=== PATIENT | male | born 1970 | race Caucasian/White ===

== ENCOUNTER 2018-10-11 01:00 | Observation (INO) | payer MEDICAID ==
[~2018-10-11] VITALS: Ht 188 cm; Wt 97.7 kg
--- NOTE | ~2018-10-11 | HEMODYNAMI ---
PATIENT:KADIE DELEON MEDICAL RECORD: [id number] : 74 [facility] AD[facility] DATE: 10/11/18 Generatedon:10/11/20189:40 Patient name: KADIE DELEON Patient #: [id number] SSN: : 1970 Date of study: 10/11/2018 Page: Of Hemodynamic Procedure Report Patient Data Patient Demographics Procedure consent was obtained First Name: KADIE Gender: Male Last Name: ADRIENNE : 1970 Patient #: [id number] Age: 48 year(s) Race: Unknown Additional ID: [id number] Contact details [address]: [address] [place] [address] State: [place] City: [place] Zip code: [address] Past Medical History Allergies: No known allergies Admission Admission Data Admission Date: 10/11/2018 Admission Time: 2:36 Room #: E14 Lab Results Lab Result Date: 10/11/2018 Lab Result Time: 0:00 Biochemistry Name Units Result Min Max BUN mg/dl 16 --(---*)-- 7 18 Creatinine mg/dl 0.9 --(-*--)-- 0.6 1.3 CBC Name Units Result Min Max Hematocrit % 45.2 --(-*--)-- 42 54 Hemoglobin g/dl 15.9 --(--*-)-- 13.5 17.5 Procedure Procedure Types Cath Procedure Diagnostic Procedure LHC [facility] w/Coronaries Sedation Charges Moderate Sedation up to 15 minutes PCI Procedure Coronary Stent Coronary Stent Initial Coronary Stent Additional Procedure Description Procedure Date Procedure Date: 10/11/2018 Procedure Start Time: 9:15 Procedure End Time: 9:35 Procedure Staff Name Function Trenton Mojica MD Performing Physician Allan Santiago RN Nurse Tabatha Ruvalcaba RT Scrub Thuy Dee RT Monitor Procedure Data Cath Procedure Fluoroscopy Diagnostic fluoroscopy Total fluoroscopy Time: 6.6 time: 6.6 min min Diagnostic fluoroscopy Total fluoroscopy dose: 688 dose: 688 mGy mGy Contrast Material Contrast Material Type Amount (ml) Isovue 300 128 Entry Location Entry Primary Successful Side Size Upsize Upsize Entry Closure Harp ccessful Closure Location (Fr) 1 (Fr) 2 (Fr) Remarks Device Remarks Radial Right 6 Fr Mechanical artery Short Compression Estimated blood loss: 10 ml Diagnostic catheters Device Type Used For End Catheter Placement DIAGNOSTIC [place] 110cm 5 Procedure Fr catheter (800171) Procedure Complications No complications Procedure Medications Medication Administration Route Dosage Oxygen etCO2 Nasal cannula 2 l/min Lidocaine 2% added to field 20 Heparin Flush Bag added to field 2 bags (1000units/500ml NS) Solumedrol I.V. 125 mg Radial Cocktail I.A. 1 syringe (Verapomil 2mg/Nitro 400mcg/Heparin 1500units) Versed I.V. 2 mg Fentanyl I.V. 100 mcg Versed I.V. 2 mg Fentanyl I.V. 100 mcg Heparin Bolus I.V. 4000 units Versed I.V. 2 mg Fentanyl I.V. 100 mcg Versed I.V. 2 mg Versed I.V. 1 mg Hemodynamics Rest HGB: 15.9 (g/dl) Heart Rate: 84 (bpm) Snapshots Pre Cath Intra NCS Post Cath Vital Signs Time Heart Resp SPO2 etCO2 NIBP (mmHg) Rhythm Pain Sedation Rate (ipm) (%) (mmHg) Status Level (bpm) 9:04:35 88 26 96 27.9 116/86(102) NSR 0 (11) 10(A) , No pain 9:08:31 80 32 95 21.1 126/88(95) NSR 0 (11) 10(A) , No pain 9:12:32 83 28 96 24.2 133/87(98) NSR 0 (11) 10(A) , No pain 9:16:36 76 18 94 16.6 122/88(98) NSR 0 (11) 10(A) , No pain 9:20:40 90 12 93 29.5 117/73(100) NSR 0 (11) 9(A) , No pain 9:24:39 87 12 95 28.7 124/76(100) NSR 0 (11) 9(A) , No pain 9:28:41 88 11 95 36.3 121/78(95) NSR 0 (11) 9(A) , No pain 9:32:41 93 12 94 36.3 121/81(103) NSR 0 (11) 9(A) , No pain 9:38:15 88 11 96 37.8 116/74(93) NSR 0 (11) 10(A) , No pain Medications Time Medication Route Dose Verified Delivered Reason Note s Effectiveness by by 9:05:12 Heparin Flush added 2 bags Trenton Chowdhury used for Bag to Yunior Mojica MD procedure (1000units/500ml field NS) 9:05:39 Oxygen etCO2 2 l/min Trenton Lemus used for Nasal Yunior Santiago RN procedure cannula 9:05:46 Lidocaine 2% added 20ml Trenton Chowdhury for local to vial Yunior Mojica MD anesthetic field 9:07:12 Solumedrol I.V. 125 mg Trenton Lemus Per physician pt Yunior Santiago RN states gets hives with crab meat 9:13:07 Versed I.V. 2 mg Trenton Lemus for sedation Yunior Santiago RN 9:13:14 Fentanyl I.V. 100 mcg Trenton Lemus for sedation Yunior Santiago RN 9:16:37 Versed I.V. 2 mg Trenton Lemus for sedation Yunior Santiago RN 9:16:41 Fentanyl I.V. 100 mcg Trenton Lemus for sedation Yunior Santiago RN 9:16:49 Radial Cocktail I.A. 1 Trenton Chowdhury for (Verapomil syringe Yunior Mojica MD vasodilation 2mg/Nitro 400mcg/Heparin 1500units) 9:20:02 Fentanyl I.V. 100 mcg Trenton Lemus for sedation Yunior Santiago RN 9:20:58 Versed I.V. 2 mg Trentonrich Castanedaie for sedation Yunior Santiago RN 9:22:49 Heparin Bolus I.V. 4000 Trentonrich Lemus for veri fied units Yunior Santiago RN anticoagulation with dr mojica 9:26:49 Versed I.V. 2 mg Trenton Lemus for sedation Yunior Santiago RN 9:31:25 Versed I.V. 1 mg Trenton Lemus for sedation Yunior Santiago RN Procedure Log Time Note 8:42:17 Signed procedure consent form obtained from patient. 8:42:20 Allan Santiago RN sent for patient. Start room use. 8:42:27 Time tracking: Regular hours (M-F 7:00 - 5:00) 8:42:30 Plan of Care:Hemodynamics will remain stable., Cardiac rhythm will remain stable., Comfort level will be maintained., Respiratory function will remain adequate., Patient/ family verbilizes understanding of procedure., Procedure tolerated without complication., Recovers from procedure without complications.. 8:42:37 H&P Date Dictated: 10/11/2018 ER History on chart.. 8:51:01 Patient received from ED to CCL 1 Alert and oriented. Tansferred to table in Supine position. 8:51:02 Warm blankets applied, and nadege hugger turned on for patient comfort. 8:51:02 Correct patient and procedure confirmed by team. 8:51:03 ECG and BP/O2 sat monitors applied to patient. 9:03:32 Vital chart was started 9:03:38 Rhythm: sinus rhythm 9:03:39 Full Disclosure recording started 9:03:40 Pre-procedure instructions explained to patient. 9:03:41 Pre-op teaching completed and patient verbalized understanding. 9:03:43 Family in waiting room. 9:03:51 Patient allergic to No known allergies 9:03:54 Is patient on blood thinner?Yes 9:04:08 PRE LOADED PLAVIX 9:05:08 Patient diabetic? No. 9:05:12 Heparin Flush Bag (1000units/500ml NS) 2 bags added to field was administered by Trenton Mojica MD; used for procedure; 9:05:17 Previous problem with sedation/anesthesia? No ? 9:05:18 Snore? No 9:05:19 Sleep apnea? No 9:05:21 Deviated septum? No 9:05:24 Opens mouth fully? Yes 9:05:25 Sticks out tongue? Yes 9:05:32 Airway obstruction? No ? 9:05:38 Airway obstruction? Yes SEASONAL ALLERGIES 9:05:39 Oxygen 2 l/min etCO2 Nasal cannula was administered by Allan Santiago RN; used for procedure; 9:05:41 Dentures? No ? 9:05:42 Modified Ron's test Ulnar < 7 seconds 9:05:46 Lidocaine 2% 20ml vial added to field was administered by Trenton Mojica MD; for local anesthetic; 9:05:46 Patient pain scale 0/10 ?. 9:05:50 IV patent on arrival in left hand with 0.9% NaCl at KVO. 9:05:54 Lab results completed and on chart. 9:05:59 Right Radial & Right Groin area was prepped with chlora-prep and draped in sterile fashion 9:06:00 Alarms reviewed by R. N. 9:06:00 Sharps counted by scrub and verified by R.N. 9:06:06 Use device set Radial Dx or PCI 9:06:07 ACIST Syringe (13608) opened to sterile field. 9:06:08 Bag Decanter (2002S) opened to sterile field. 9:06:09 ACIST Hand Control (54689) opened to sterile field. 9:06:10 ACIST Manifold (37001) opened to sterile field. 9:06:10 Tegaderm 4 x 4 (1626W) opened to sterile field. 9:06:11 Medline Cath Pack ([id number]) opened to sterile field. 9:06:12 DIAGNOSTIC WIRE .035 260cm J wire (785176) opened to sterile field. 9:06:12 MBrace Wrist Support ([id number]) opened to sterile field. 9:06:13 SHEATH 6FR Slender (81-8372) opened to sterile field. 9:07:12 Solumedrol 125 mg I.V. was administered by Allan Santiago RN; Per physician; pt states gets hives with crab meat 9:07:32 Baseline sample Acquired. 9:08:27 Lab Result : BUN 16 mg/dl 9:08:27 Lab Result : Hemoglobin 15.9 g/dl 9:08:27 Lab Result : Creatinine 0.9 mg/dl 9:08:27 Lab Result : Hematocrit 45.2 % 9:12:38 --------ALL STOP TIME OUT------ 9:12:38 Final Timeout: patient, procedure, and site verified with staff and physician. All members of the team are in agreement. 9:12:40 Right Radial & Right Groin site verified by team. 9:12:46 Maximum allowable Isovue 300 dose 300ml. Physician notified. (300ml for normal creatinines. For patients with creatinine of 1.7 or higher multiply weight(kg) x 5 divided by creatinine.) 9:12:51 Fire Safety Assessment: A--An alcohol-based skin anteseptic being used preoperatively., C--Open oxygen or nitrous oxide is being used., D--An ESU, laser, or fiber-optic light is being used. 9:12:55 Physical assessment completed. ASA score P 2 - A patient with mild systemic disease as per Trenton Mojica MD. 9:12:57 Sedation plan: IV Moderate Sedation Medication:Versed, Fentanyl 9:13:06 Zero performed for pressure channel P1 9:13:07 Versed 2 mg I.V. was administered by Allan Santiago RN; for sedation; 9:13:14 Fentanyl 100 mcg I.V. was administered by Allan Santiago RN; for sedation; 9:14:41 Procedure started. 9:15:11 Local anesthetic to right radial artery with Lidocaine 2% by Trenton Mojica MD.INITIAL ACCESS ONLY 9:15:25 A 6 Fr Short sheath was inserted into the Right Radial artery 9:16:37 Versed 2 mg I.V. was administered by Allan Santiago RN; for sedation; 9:16:41 Fentanyl 100 mcg I.V. was administered by Allan Santiago RN; for sedation; 9:16:49 Radial Cocktail (Verapomil 2mg/Nitro 400mcg/Heparin 1500units) 1 syringe I.A. was administered by Trenton Mojica MD; for vasodilation; 9:17:37 A DIAGNOSTIC [place] 110cm 5 Fr catheter (069137) was advanced over the wire and used for Procedure. 9:18:15 LV gram done using WATSON 9:18:18 Injector settings: Ml/sec: 7, Volume: 15, 9:18:55 EF : 55 % 9:19:33 RCA angiography performed. 9:19:41 Catheter exchanged over wire. 9:20:02 Fentanyl 100 mcg I.V. was administered by Allan Santiago RN; for sedation; 9:20:30 GUIDE 6FR XBLAD 3.5 catheter ([id number]) opened to sterile field. 9:20:49 6 Fr XBLAD 3.5 guide catheter was inserted over the wire 9:20:58 Versed 2 mg I.V. was administered by Allan Santiago RN; for sedation; 9:22:10 CHOICE PT Extra Support 182cm wire ([id number]) opened to sterile field. 9:22:10 INFLATOR Merit BasmernaCompak (YJ8728) opened to sterile field. 9:22:49 Heparin Bolus 4000 units I.V. was administered by Allan Santiago RN; for anticoagulation; verified with dr mojica 9:23:04 CHOICE ES 182 wire advanced. 9:23:21 Wire advanced across lesion. 9:23:41 CHOICE PT Extra Support 182cm wire ([id number]) opened to sterile field. 9:23:53 WIRE #2 ADVANCED ACROSS LAD 9:25:10 Inflate balloon Inflation number: 1 A EUPHORA 2.5 x 20 Balloon ([id number]) was prepped and advanced across the 1st Diag, then inflated to 11 [place] for 0:00 (min:sec). 9:25:48 Balloon removed over the wire. 9::49 Versed 2 mg I.V. was administered by Allan Santiago RN; for sedation; 9:27:10 Place stent Inflation Number: 2 A INTEGRITY RX 2.5 x 22 stent ([id number]) was prepped and advanced across the 1st Diag. The stent was deployed at 17 ZELAL[place] for 0:00 (min:sec). 9:27:18 Stent catheter was removed intact over wire. 9:27:26 WIRE REMOVED FROM DIAG 9:29:06 Inflation number: 1 The EUPHORA 2.5 x 20 Balloon ([id number]) was reinflated across the Mid LAD, to 21 ZELALEM for 0:10 (min:sec). 9:29:31 Inflation number: 2 The EUPHORA 2.5 x 20 Balloon ([id number]) was reinflated across the Mid LAD, to 21 ZELALEM for 0:10 (min:sec). 9:29:58 Balloon removed over the wire. 9:31:25 Versed 1 mg I.V. was administered by Allan Santiago RN; for sedation; 9:31:34 Place stent Inflation Number: 3 A INTEGRITY RX 3.0 x 26 stent ([id number]) was prepped and advanced across the Mid LAD. The stent was deployed at 21 ZELAL[place] for 0:10 (min:sec). 9:31:44 Stent catheter was removed intact over wire. 9:31:58 Balloon removed over the wire. 9:31:59 Wire removed. 9:32:27 Procedure ended.(Physican Out) 9:32:34 TR BAND Standard ([id number]) opened to sterile field. 9:32:48 Sheath removed intact; hemostasis achieved with Mechanical Compression to the Right Radial artery. 9:33:15 Fluoroscopy time 06.60 minutes. 9:33:19 Fluoroscopy dose: 688 mGy 9:33:19 Flurop Dose total: 688 9:33:22 Contrast amount:Isovue 300 128ml. 9:33:24 Sharps counted by scrub and verified by R.N. 9:33:29 TR band inflated with 10cc of air. 9:34:54 Post-procedure physical assessment completed. ASA score P 2 - A patient with mild systemic disease as per Trenton Mojica MD. 9:34:57 Post procedure rhythm: sinus rhythm 9:34:59 Estimated blood loss: 10 ml 9:35:00 Post procedure instruction explained to patient.Patient verbalizes understanding. 9:35:00 Patient needs reinforcement of post procedure teaching. 9:35:28 Procedure type changed to Cath procedure, Diagnostic procedure, LHC, LHC w/Coronaries, Sedation Charges, Moderate Sedation up to 15 minutes, PCI procedure, Coronary Stent, Coronary Stent Initial, Coronary Stent Additional 9:35:48 Procedure and supply charges have been captured, reviewed, submitted and are correct. 9:35:50 Procedure Complication : No complications 9:35:52 Vital chart was stopped 9:35:52 See physician's report for complete and final results. 9:35:54 Report given to Pre/Post Procedure Room. 9:35:56 Patient transfered to Pre/Post Procedure Room with Bed. 9:35:58 Procedure ended. 9:35:58 Full Disclosure recording stopped 9:36:01 End room use (Document Last) Intervention Summary Intervention Notes Time ActionType Lesion and Equipment Action# Pressure Duration Attributes Used 9:25:10 Inflate 1st Diag EUPHORA 2.5 1 11 00:00 balloon x 20 Balloon ([id number]) 9:27:10 Place stent 1st Diag INTEGRITY RX 2 17 00:00 2.5 x 22 stent ([id number]) 9:29:06 Reinflate Mid LAD EUPHORA 2.5 1 21 00:10 balloon x 20 Balloon ([id number]) 9:29:31 Reinflate Mid LAD EUPHORA 2.5 2 21 00:10 balloon x 20 Balloon ([id number]) 9:31:34 Place stent Mid LAD INTEGRITY RX 3 21 00:10 3.0 x 26 stent ([id number]) Device Usage Item Name Manufacture Quantity Catalog Number Hospital Part Current Mini mal Lot# / Charge Number Stock Stock Serial# Code ACIST Acist 1 73174 774912 521031 737393 20 Syringe Medical (02099) Systems Inc Bag Decanter Microtek 1 2001S 599318 84841 366376 5 (2001S) Medical Inc. ACIST Hand Acist 1 14676 683086 773359 304160 5 Control Medical (21173) Systems Inc ACIST Acist 1 63396 723107 301342 816376 5 Manifold Medical (19208) Systems Inc Tegaderm 4 x 3M 1 1626W 344786 379019 080777 5 4 (1626W) Medline Cath Medline 1 [id number] 425780 11316 380257 5 Pack ([id number]) DIAGNOSTIC [place] 1 320278 655681 190264 723184 30 WIRE .035 260cm J wire (040591) MBrace Wrist Advanced 1 140-0250-00 682930 81954 001551 5 Support Vascular (083399180) Dynamics SHEATH 6FR Terumo 1 [id number] 965528 021518 567709 5 Slender (80-1060) DIAGNOSTIC Terumo 1 40-4113 771345 252946 597643 5 Ess[place] 110cm 5 Fr catheter (213410) GUIDE 6FR Cardinal 1 [id number] 273074 852648 771852 10 XBLAD 3.5 Health catheter (50613091) CHOICE PT [place] 2 [id number] 627040 769788 011521 5 Extra Scientific Support 182cm wire ([id number]) INFLATOR Merit 1 LX6225 802900 538246 166587 15 Binary [place] Medical BasixCompak (JL8915) EUPHORA 2.5 Medtronic 1 [id number] 661635 924314 082767 5 [id number] x 20 Balloon ([id number]) INTEGRITY RX Medtronic 1 [id number] 532743 671539 459170 5 [id number] 2.5 x 22 stent ([id number]) INTEGRITY RX Medtronic 1 [id number] 496647 240940 696187 5 [id number] 3.0 x 26 stent ([id number]) TR BAND Terumo 1 [id number] 721156 989253 559088 40 Standard ([id number]) Signature Audit [place] Stage Time Signature Unsigned Intra-Procedure 10/11/2018 Thuy Dee 9:40:42 AM RT(R) Signatures Monitor : Thuy Dee Signature : RT Date : Time : [address] [address]
[2018-10-11 01:03] VITALS: Ht 188 cm; Wt 97.7 kg
[2018-10-11] MEDS ORDERED: DOXEPIN HCL10 MG PO (01:07)
[2018-10-11] MEDS ORDERED: NAPROSYN500 MG PO (01:08)
[2018-10-11] MEDS ORDERED: HYDROCODON-ACE1 EA10 PO (01:08)
[2018-10-11] MEDS ORDERED: VALIUM5 MG PO (01:09)
[2018-10-11] MEDS ORDERED: CALAN120 MG PO (01:09)
[2018-10-11] MEDS ORDERED: ZYRTEC10 MG PO (01:09)
[2018-10-11] MEDS ORDERED: PEPCID40 MG PO (01:11)
--- NOTE | 2018-10-11 01:40 | NUR ---
PT GIVEN BLANKETS, WATER AND A SANDWICH.
[2018-10-11 01:44] LABS: INR 1.04 (0.85-1.17); PROTIME 13.1 SECONDS (11.6-15.0)
[2018-10-11 01:51] LABS: ALBUMIN 3.9 g/dL (3.4-5.0); ALKALINE PHOSPHATASE 85 U/L (46-116); ALT (SGPT) 33 U/L (10-68); BILIRUBIN - TOTAL 0.33 mg/dL (0.2-1.3); CALC OSMOLALITY 279 mosm/kg (275-300); CALCIUM 8.6 mg/dL (8.5-10.1); CARBON DIOXIDE 23.7 mmol/L (21.0-32.0); CHLORIDE - SERUM 105 mmol/L (98-107); CREATININE - SERUM 0.9 mg/dL (0.6-1.3); GLUCOSE 105 mg/dL (74-106); POTASSIUM - SERUM 3.9 mmol/L (3.5-5.1); PROTEIN - SERUM 7.1 g/dL (6.4-8.2); SODIUM 140 mmol/L (136-145); UREA NITROGEN 16 mg/dL (7-18); eGFR NON AFRICAN AMERICAN > 90 mL/min (90-120)
[2018-10-11 01:56] LABS: BASOPHILS 0.2 % (0-2); EOSINOPHILS 0.4 % (0-7); HEMATOCRIT 45.2 % (42.0-54.0); HEMOGLOBIN 15.9 g/dL (13.5-17.5); IMMATURE GRANULOCYTES 0.4 % (0-5); LYMPHOCYTES 23.5 % (15-50); MCH 33.3 pg (26.0-34.0); MCHC 35.2 g/dL (31.0-37.0); MCV 94.6 fL (80.0-100.0); MEAN PLATELET VOLUME 10.3 fL (7.4-10.4); MONOCYTES 4.6 % (2-11); NEUTROPHILS 70.9 % (40-80); PLATELET COUNT 229 10x3/uL (130-400); RBC 4.78 10x6/uL (4.20-6.10); RDW 12.8 % (11.5-14.5); WBC 12.5 10x3/uL (4.8-10.8)
[2018-10-11 02:07] LABS: CKMB 10.3 U/L (0.0-3.6); CREATINE KINASE 145 UL (21-232)
[2018-10-11 02:18] LABS: TROPONIN-I 1.606 ng/mL (0.000-0.060)
--- NOTE | 2018-10-11 02:31 | NUR ---
PT GIVEN BLANKETS.
[2018-10-11 03:00] VITALS: BP 140/88
--- NOTE | 2018-10-11 03:32 | NUR ---
PT REPORTS CHEST PAIN STILL FEELS LIKE BURNING, STATES HAS CHRONIC BACK PAIN AND WOULD FEEL BETTER IF HE COULD LAY DOWN FLAT BUT BURNING BECOMES WORSE WHEN HE LAYS FLAT, PT REQUESTS TO GET ORDERED PAIN MEDICATION NOW.
--- NOTE | 2018-10-11 07:22 | NUR ---
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
--- NOTE | 2018-10-11 08:18 | NUR ---
PT GIVEN HIS PRE OP MEDS.
[2018-10-11 08:43] VITALS: BP 133/85
--- NOTE | 2018-10-11 08:45 | NUR ---
PT TO IMPLEMENTATION SPECIALIST VIA STRETCHER.
--- NOTE | 2018-10-11 09:45 | NUR ---
0945 RECIEVED TO ROOM VIA STRETCHER FROM DRAWER IN HAND WITH TR BAND TO R/WRIST CDI NO BLEEDING OR HEMATOMA NOTED. HR 94 BP 124/92 CHEST PAIN IS DENIED. FAMILY AT BEDSIDE
[2018-10-11] MEDS ORDERED: PRAVACHOL40 MG PO (09:55)
[2018-10-11] MEDS ORDERED: BAYER CHEWABLE81 MG PO (09:55)
[2018-10-11] MEDS ORDERED: TOPROL XL50 MG PO (09:55)
[2018-10-11] MEDS ORDERED: PLAVIX75 MG PO (09:55)
--- NOTE | 2018-10-11 10:05 | NUR ---
VSS WITH TR BAND TO R/WRIST CDI NO BLEEDING NOTED. FAMILY IS AT BEDSIDE
--- NOTE | 2018-10-11 10:33 | NUR ---
TR BAND TO R/WRIST IS CDI NO BLEEDING OR HEMATOMA NOTED. SANDWICH AND SODA TO BEDSIDE. FAMILY IS PRESENT IN ROOM CHEST PAIN IS DENIED
--- NOTE | 2018-10-11 10:49 | NUR ---
PATIENT TOLERATING SANDWICH AND SODA WITH NAUSEA DENIED. TR BAND TO R/WRIST IS CDI WITH CHEST PAIN DENIED
--- NOTE | 2018-10-11 11:14 | NUR ---
TR BAND TO R/WRIST IS CDI WITH CHEST PAIN DENIED VSS
--- NOTE | 2018-10-11 11:52 | NUR ---
DR GIANG PRESENT IN ROOM WITH PATIENT AND FAMILY. TR BAND TO R/WRIST IS CDI
--- NOTE | 2018-10-11 12:47 | NUR ---
4 CC AIR REMOVED FROM TR BAND WITH NO BLEEDING OR HEMATOMA NOTED
--- NOTE | 2018-10-11 12:58 | NUR ---
4 CC AIR REMOVED FROM TR BAND WITH NO BLEEDING NOTED
--- NOTE | 2018-10-11 13:03 | NUR ---
4 CC AIR REMOVED FROM TR BAND WITH NO BLEEDING NOTED
--- NOTE | 2018-10-11 13:42 | NUR ---
PIV REMOVED WITH DRESSING APPLIED. VERBAL AND WRITTEN DISCHARGE GONE OVER WITH PATIENT AND FAMILY. TR BAND REMOVED WITH DRESSING APPLIED. PATIENT LEFT VIA WC TO PARKING FOR TRANSPORT HOME NO DISTRESS
--- NOTE | 2018-10-11 14:57 | HP ---
PATIENT: KADIE DELEON MEDICAL RECORD: [id number] ACCOUNT: [id number] [facility] 74 ADMISSION DATE: 10/11/18 PCP: No PCP HISTORY AND PHYSICAL EXAMINATION DIAGNOSES: 1. Non-Q-wave myocardial infarction. 2. Coronary artery disease. 3. Hypertension. 4. Gastroesophageal reflux disease. HISTORY OF PRESENT ILLNESS: This is a gentleman with no previous cardiac history, presented to [facility] with chest pain and chest discomfort, was told that he had elevated cardiac enzymes, but was released. He has continued to have chest pain. He presents here. His troponin is elevated. PHYSICAL EXAMINATION: GENERAL APPEARANCE: Well-nourished, well-developed, appears stated age. Level of distress, comfortable. PSYCHIATRIC: Mental status, alert, normal affect. Orientation, oriented to time, place and person. EYES: Lids and conjunctiva, noninjected. No discharge, no pallor. ENT: Lips, teeth, gums, normal dentition. Oropharynx, no cyanosis, no pallor. NECK: Carotid arteries, bilateral normal upstroke, no bruits, no thrills. JUGULAR VEINS: No jugular venous pressure or distention. CERVICAL LYMPH NODES: Nontender, nonenlarged. THYROID: Not enlarged. Nontender. No nodules. LUNGS: Respiratory effort, unlabored. CHEST: Normal curvature. No thoracic deformity. No chest wall tenderness. Percussion, resonant. Auscultation, clear. No wheezes, no rales, no rhonchi. CARDIOVASCULAR: Precordial exam, nondisplaced. No heaves or pericardial thrills. Rate and rhythm, regular. Heart sounds, normal S1, normal S2. No S3, no gallop, no rub. Systolic murmur, not heard. Diastolic murmur, not heard. EXTREMITIES: No cyanosis, no edema. Peripheral pulses, full and equal in all extremities, except as noted. No bruits appreciated. ABDOMEN: Soft, nondistended. Normal aorta. No bruit. Nontender. No masses. Liver, nontender, no hepatomegaly. Spleen, nontender, no splenomegaly. MUSCULOSKELETAL: No joint tenderness. No joint swelling. No erythema. NEUROLOGICAL: Normal gait, normal strength, normal tone. SKIN: Warm and dry. OVERALL IMPRESSION: Chest pain compatible with ischemic heart disease with elevated troponin. We will proceed with coronary angiography. Further care depends upon findings of the angiography. TRANSINT:[id number] Voice Confirmation ID: [id number] DOCUMENT ID: [id number] HISTORY AND PHYSICAL [id number] KADIE DELEON JEFFREY MD at 1457 CC: [id number] DICTATION DATE: 10/11/18420 OPTICAL EFFECTS LINE UP PERSON: 10/11/18440 DIS IN 10/11/18 [place] [id number] [place] [id number]
--- NOTE | 2018-10-11 14:58 | OP ---
PATIENT NAME: KADIE DELEON MEDICAL RECORD: [id number] :74 [facility] AD[facility]ION DATE:10/11/18 SURGEON: DOUG GIANG MD DATE OF OPERATION: 10/11/2018 DATE OF SERVICE: 10/11/2018 PROCEDURES: 1. PTCA stent LAD. 2. PTCA stent LAD diagonal. 3. Left heart catheterization. 4. Selective coronary angiography. 5. Left ventriculogram. INDICATION: Non-Q-wave myocardial infarction and coronary artery disease. PROCEDURE IN DETAIL: After informed consent was obtained and after a detailed description of the risks, benefits as well as alternative therapies, the patient elected to proceed with angiogram and angioplasty. The right radial area was prepped and draped in normal sterile fashion. Right radial artery was cannulated via modified Seldinger technique with placement of 6-Lithuanian sheath. All catheters exchanged through this sheath. FINDINGS: Left ventriculogram was performed in standard 30-degree WATSON view, reveals good cardiac wall motion throughout all segments. Overall ejection fraction estimated to 60%. SELECTIVE CORONARY ANGIOGRAPHY: 1. Left main is with no significant angiographic disease. 2. Left anterior descending has a very large diagonal, has a 99% stenosis. The LAD itself has 80% stenosis. 3. The left circumflex has moderate irregularities, but no flow-limiting stenosis. 4. The right coronary has 50%-70% stenosis proximally. PTCA STENT OF THE LAD AND DIAGONAL: The diagonal was addressed with a 2.5 x 22-mm Integrity. The LAD itself with a 3.0 x 26-mm Integrity. Result was 0% residual stenosis. OVERALL IMPRESSION: Successful percutaneous transluminal coronary angioplasty stent of the left anterior descending and diagonal going from 99% initial stenosis to 0% residual. PLAN: PTCA stent of the RCA in the near future. TRANSINT:[id number] Voice Confirmation ID: [id number] DOCUMENT ID: [id number] OPERATIVE REPORT [id number] KADIE DELEON JEFFREY MD at 1458 CC: [id number] DICTATION DATE: 10/11/18 0939 ROOF TRUSS DETAILER: 10/11/18 0957 DIS IN 10/11/18 [place] [address]
--- NOTE | 2018-10-11 14:58 | DS ---
PATIENT:KADIE DELEON :74 MEDICAL RECORD: [id number] DISCHARGE SUMMARY ADMISSION DATE: 10/11/18 DISCHARGE DATE: 10/11/18 DIAGNOSES: 1. Non-Q-wave myocardial infarction. 2. PTCA and stent of LAD and diagonal this admission. 3. Coronary artery disease. 4. Hypertension. HOSPITAL COURSE: Mr. Deleon presents with chest pain, noted to have elevated troponin and found to have critical disease of the LAD and diagonal, underwent successful PTCA and stent of these territories. He has concomitant disease of the RCA. He was discharged home with the addition of aspirin, Plavix, metoprolol, Pravachol to his medical regimen. He will be brought back in approximately 1 week for PTCA and stent of the RCA. TRANSINT:[id number] Voice Confirmation ID: [id number] DOCUMENT ID: [id number] DOUG GIANG MD at 1458 CC: [id number] DICTATION DATE: 10/11/18 0938 MANUFACTURING ENGINEERING INTERN: 10/11/18 1016 DIS IN 10/11/18 [facility] [address] [place] [address]
== END 2018-10-11 13:44 | disposition home or self-care (01) ==
LOC: D.ER 01:00 → D.EDHOLD 02:36 → OBSVTIME 02:36 → D.CLR 09:40
PROVIDERS: Family Medicine; ADMIT Internal Medicine Interventional Cardiology; ATTEND Internal Medicine Interventional Cardiology
DX: I21.4 Non-ST elevation (NSTEMI) myocardial infarction (principal); I25.10 Atherosclerotic heart disease of native coronary artery without angina pectoris; I10 Essential (primary) hypertension; K21.9 Gastro-esophageal reflux disease without esophagitis

== ENCOUNTER 2018-10-25 08:08 | Outpatient (CLI) | payer MEDICAID ==
[~2018-10-25] VITALS: Ht 188 cm; Wt 97.7 kg
--- NOTE | ~2018-10-25 | HEMODYNAMI ---
PATIENT:KADIE DELEON MEDICAL RECORD: [id number] : 74 LOCATION:D.CAT ADMISSION DATE: 10/25/18 Generatedon:10/25/201810:45 Patient name: KADIE DELEON Patient #: [id number] SSN: : 1970 Date of study: 10/25/2018 Page: Of Hemodynamic Procedure Report Patient Data Patient Demographics Procedure consent was obtained First Name: KADIE Gender: Male Last Name: ADRIENNE : 1970 [facility] Initial: REEMA Age: 48 year(s) Patient #: [id number] Race: Unknown Additional ID: [id number] Contact details [address]: [address] [place] [address] State: [place] City: [place] Zip code: [address] Past Medical History Allergies Allergen Reaction Date Comments Reported Shellfish 10/25/2018 Other allergy 10/25/2018 SHELLFISH, CAT DANDER Admission Admission Data Admission Date: 10/25/2018 Admission Time: 8:08 Height (in.): 74 BSA: 2.24 (m2) Height (cm.): 187.96 BMI: 27.65 (kg/m2) Weight (lbs.): 215.39 Weight (kg.): 97.7 Lab Results Lab Result Date: 10/25/2018 Lab Result Time: 0:00 Biochemistry Name Units Result Min Max BUN mg/dl 18 --(---*)-- 7 18 Creatinine mg/dl 1 --(--*-)-- 0.6 1.3 CBC Name Units Result Min Max Hematocrit % 45.9 --(-*--)-- 42 54 Hemoglobin g/dl 16.1 --(--*-)-- 13.5 17.5 Procedure Procedure Types Cath Procedure Diagnostic Procedure Sedation Charges Moderate Sedation up to 30 minutes PCI Procedure Coronary Stent Coronary Stent Initial Procedure Description Procedure Date Procedure Date: 10/25/2018 Procedure Start Time: 10:27 Procedure End Time: 10:43 Procedure Staff Name Function Trenton Mojica MD Performing Physician Thuy Dee RT Monitor Amaury Underwood RT Scrub Keiry Mosley RN Nurse Procedure Data Cath Procedure Fluoroscopy Diagnostic fluoroscopy Total fluoroscopy Time: 1.3 time: 1.3 min min Diagnostic fluoroscopy Total fluoroscopy dose: 78 dose: 78 mGy mGy Contrast Material Contrast Material Type Amount (ml) Isovue 300 37 Entry Location Entry Primary Successful Side Size Upsize Upsize Entry Closure Succes sful Closure Location (Fr) 1 (Fr) 2 (Fr) Remarks Device Remarks Radial Right 6 Fr artery Short Estimated blood loss: 10 ml Procedure Complications No complications Procedure Medications Medication Administration Route Dosage 0.9% NaCl I.V. 100 ml/hr Oxygen etCO2 Nasal cannula 2 l/min Lidocaine 2% added to field 20 Heparin Flush Bag added to field 2 bags (1000units/500ml NS) Versed I.V. 2 mg Fentanyl I.V. 100 mcg Versed I.V. 2 mg Fentanyl I.V. 50 mcg Radial Cocktail added to field 1 syringe (Verapomil 2mg/Nitro 400mcg/Heparin 1500units) Versed I.V. 2 mg Fentanyl I.V. 50 mcg Versed I.V. 2 mg Fentanyl I.V. 50 mcg Fentanyl I.V. 50 mcg Heparin Bolus I.V. 4000 units Hemodynamics Rest BSA: 2.24 (m2) HGB: 16.1 (g/dl) O2 Consumption: Estimated: 281.14 (ml/min) O2 Co nsumption indexed: Estimated:125.51 (ml/min/m) Heart Rate: 83 (bpm) Snapshots Pre Cath Intra NCS Post Cath Vital Signs Time Heart Resp SPO2 etCO2 NIBP (mmHg) Rhythm Pain Sedation Rate (ipm) (%) (mmHg) Status Level (bpm) 9:25:52 81 19 98 23 126/85(102) NSR 0 (11) 10(A) , No pain 9:30:06 85 19 96 33 125/81(114) NSR 0 (11) 10(A) , No pain 9:34:20 91 18 96 22.5 126/85(99) NSR 0 (11) 10(A) , No pain 9:38:37 81 14 96 27 119/75(94) NSR 0 (11) 10(A) , No pain 9:42:48 86 14 97 24 117/80(91) NSR 0 (11) 10(A) , No pain 9:47:02 84 13 98 28.5 123/75(96) NSR 0 (11) 10(A) , No pain 9:51:18 86 14 98 30 124/75(96) NSR 0 (11) 10(A) , No pain 9:55:30 86 12 96 28.5 125/76(91) NSR 0 (11) 10(A) , No pain 9:59:44 83 11 97 27.7 117/76(88) NSR 0 (11) 10(A) , No pain 10:03:56 83 13 98 30.7 117/71(93) NSR 0 (11) 10(A) , No pain 10:08:08 82 13 96 19.5 121/72(97) NSR 0 (11) 10(A) , No pain 10:12:22 83 13 96 30 121/70(91) NSR 0 (11) 10(A) , No pain 10:16:38 85 11 97 24.7 120/78(90) NSR 0 (11) 10(A) , No pain 10:20:50 84 13 98 28.5 119/76(97) NSR 0 (11) 10(A) , No pain 10:25:02 85 12 98 13.5 117/73(95) NSR 0 (11) 10(A) , No pain 10:29:16 84 13 99 13.5 116/70(94) NSR 0 (11) 10(A) , No pain 10:33:28 86 12 98 15.7 123/81(98) NSR 0 (11) 10(A) , No pain 10:37:38 88 14 99 14 118/72(87) NSR 0 (11) 10(A) , No pain 10:41:54 92 11 97 25.5 117/71(89) NSR 0 (11) 10(A) , No pain Medications Time Medication Route Dose Verified Delivered Reason Not es Effectiveness by by 9:24:59 0.9% NaCl I.V. 100 Trenton Ricci used for ml/hr Yunior Mosley machine maintenance 9:25:05 Oxygen etCO2 2 l/min Trenton Ricci used for Nasal Yunior Mosley procedure cannula RN 9:25:12 Lidocaine 2% added 20ml Trenton Trenton for local to vial Yunior Mojica MD anesthetic field 9:25:16 Heparin Flush added 2 bags Trenton Trenton used for Bag to Yunior Mojica MD procedure (1000units/500ml field NS) 10:15:04 Fentanyl I.V. 100 mcg Trenton Keiry for sedation Yunior Mosley RN 10:15:57 Versed I.V. 2 mg Trenton Keiry for sedation Yunior Mosley RN 10:20:26 Versed I.V. 2 mg Trenton Keiry for sedation Yunior Mosley RN 10:20:30 Fentanyl I.V. 50 mcg Trenton Keiry for sedation Yunior Mosley RN 10:21:03 Radial Cocktail added 1 Trenton Keiry used for (Verapomil to syringe Yunior Mosley procedure 2mg/Nitro field RN 400mcg/Heparin 1500units) 10:26:07 Versed I.V. 2 mg Trenton Keiry for sedation Yunior Mosley RN 10:26:11 Fentanyl I.V. 50 mcg Trenton Keiry for sedation Yunior Mosley RN 10:29:57 Versed I.V. 2 mg Trenton Keiry for sedation Yunior Mosley RN 10:30:01 Fentanyl I.V. 50 mcg Trenton Keiry for sedation Yunior Mosley RN 10:34:08 Fentanyl I.V. 50 mcg Trenton Keiry for sedation Yunior Mosley RN 10:37:23 Heparin Bolus I.V. 4000 Trenton Keiry for dajuan ified units Yunior Mosley anticoagulation with Dr. REE Mojica Procedure Log Time Note 9:09:45 Time tracking: Regular hours (M-F 7:00 - 5:00) 9:09:49 Plan of Care:Hemodynamics will remain stable., Cardiac rhythm will remain stable., Comfort level will be maintained., Respiratory function will remain adequate., Patient/ family verbilizes understanding of procedure., Procedure tolerated without complication., Recovers from procedure without complications.. 9:09:50 Diagnostic Cath status Elective 9:09:52 Signed procedure consent form obtained from patient. 9:09:56 H&P Date Dictated: 10/25/2018 New H&P dictated by physician.. 9:11:17 Keiry Mosley RN sent for patient. Start room use. 9:11:37 Patient allergic to Shellfish 9:11:50 Patient allergic to Other allergySHELLFISH, CAT DANDER 9::16 Lab Result : BUN 18 mg/dl 9::16 Lab Result : Creatinine 1 mg/dl 9::16 Lab Result : Hemoglobin 16.1 g/dl 9::16 Lab Result : Hematocrit 45.9 % 9:13:27 Patient Height : 74 inches 9:13:32 Patient Weight : 215.39 lbs 9:18:16 Patient received from Pre/Post Procedure Room to CCL 1 Alert and oriented. Tansferred to table in Supine position. 9:18:25 Warm blankets applied, and nadege hugger turned on for patient comfort. 9:18:26 Correct patient and procedure confirmed by team. 9:18:26 ECG and BP/O2 sat monitors applied to patient. 9:24:50 Vital chart was started 9:24:59 0.9% NaCl 100 ml/hr I.V. was administered by Keiry Mosley RN; used for procedure; 9:25:05 Oxygen 2 l/min etCO2 Nasal cannula was administered by Keiry Mosley RN; used for procedure; 9:25:12 Lidocaine 2% 20ml vial added to field was administered by Trenton Mojica MD; for local anesthetic; 9:25:16 Heparin Flush Bag (1000units/500ml NS) 2 bags added to field was administered by Trenton Mojica MD; used for procedure; 9:29:40 Rhythm: sinus rhythm 9:29:41 Full Disclosure recording started 9::41 Pre-procedure instructions explained to patient. 9:29:41 Pre-op teaching completed and patient verbalized understanding. 9:29:52 Family in patients room. 9:29:54 Patient NPO since Midnight. 9:29:55 Is patient on blood thinner?Yes 9:29:57 ACC The patient was administered the following blood thiners within the last 24 hours: ACCPlavix 9:30:05 Patient diabetic? No. 9:30:20 Previous problem with sedation/anesthesia? No ? 9:30:21 Snore? No 9:30:22 Sleep apnea? No 9:30:28 Deviated septum? No 9:30:29 Opens mouth fully? Yes 9:30:31 Sticks out tongue? Yes 9:30:38 Airway obstruction? No ? 9:30:41 Dentures? No ? 9:31:45 Modified Ron's test Ulnar < 7 seconds 9:31:48 Patient pain scale 0/10 ?. 9:31:53 IV patent on arrival in left hand with 0.9% NaCl at O. 9:31:55 Lab results completed and on chart. 9:31:58 Right Radial & Right Groin area was prepped with chlora-prep and draped in sterile fashion 9:31:58 Alarms reviewed by R. N. 9:31:59 Sharps counted by scrub and verified by R.N. 9:32:09 Baseline sample Acquired. 9:32:27 Use device set Radial Dx or PCI 9:32:28 ACIST Syringe (24416) opened to sterile field. 9:32:29 Bag Decanter (2001S) opened to sterile field. 9:32:29 ACIST Hand Control (04976) opened to sterile field. 9:32:30 ACIST Manifold (27382) opened to sterile field. 9:32:30 Tegaderm 4 x 4 (1626W) opened to sterile field. 9:32:35 Medline Cath Pack ([id number]) opened to sterile field. 9:32:36 DIAGNOSTIC WIRE .035 260cm J wire (406256) opened to sterile field. 9:32:37 MBrace Wrist Support ([id number]) opened to sterile field. 9:32:38 SHEATH 6FR Slender (801060) opened to sterile field. 10:14:54 --------ALL STOP TIME OUT------ 10:14:55 Final Timeout: patient, procedure, and site verified with staff and physician. All members of the team are in agreement. 10:14:56 Right Radial & Right Groin site verified by team. 10:14:59 Maximum allowable Isovue 300 dose 300ml. Physician notified. (300ml for normal creatinines. For patients with creatinine of 1.7 or higher multiply weight(kg) x 5 divided by creatinine.) 10:15:01 Fire Safety Assessment: A--An alcohol-based skin anteseptic being used preoperatively., C--Open oxygen or nitrous oxide is being used., D--An ESU, laser, or fiber-optic light is being used. 10:15:04 Fentanyl 100 mcg I.V. was administered by Keiry Mosley RN; for sedation; :15:04 Physical assessment completed. ASA score P 2 - A patient with mild systemic disease as per Trenton Mojica MD. 10:15:07 Sedation plan: IV Moderate Sedation Medication:Versed, Fentanyl 10::57 Versed 2 mg I.V. was administered by Keiry Mosley RN; for sedation; 10:: Versed 2 mg I.V. was administered by Keiry Mosley RN; for sedation; 10::30 Fentanyl 50 mcg I.V. was administered by Keiry Mosley RN; for sedation; 10::03 Radial Cocktail (Verapomil 2mg/Nitro 400mcg/Heparin 1500units) 1 syringe added to field was administered by Keiry Mosley RN; used for procedure; ::07 Versed 2 mg I.V. was administered by Keiry Mosley RN; for sedation; 10:26:11 Fentanyl 50 mcg I.V. was administered by Keiry Mosley RN; for sedation; 10:27:09 Procedure started. 10:27:29 Local anesthetic to right radial artery with Lidocaine 2% by Trenton Mojica MD.INITIAL ACCESS ONLY 10:29:57 Versed 2 mg I.V. was administered by Keiry Mosley RN; for sedation; 10:30:01 Fentanyl 50 mcg I.V. was administered by Keiry Mosley RN; for sedation; 10:34:08 Fentanyl 50 mcg I.V. was administered by Keiry Mosley RN; for sedation; 10:34:13 A 6 Fr Short sheath was inserted into the Right Radial artery 10:34:30 GUIDE 6FR AR 2.0 catheter ([id number]) opened to sterile field. 10:34:31 6 Fr AR 2 guide catheter was inserted over the wire 10:36:21 CHOICE ES 182 wire advanced. 10:36:43 Wire advanced across lesion. 10:37:23 Heparin Bolus 4000 units I.V. was administered by Keiry Mosley RN; for anticoagulation; verified with Dr. Mojica 10:37:50 Inflate balloon Inflation number: 1 A INTEGRITY RX 3.5 x 15 stent ([id number]) was prepped and advanced across the Mid RCA, then inflated to 13 [place]ELAL[place] for 0:10 (min:sec). 10:37:52 Stent catheter was removed intact over wire. 10:37:52 Balloon removed over the wire. 10:37:53 Wire removed. 10:37:58 TR BAND Standard ([id number]) opened to sterile field. 10:38:09 Procedure ended.(Physican Out) 10:38:27 Fluoroscopy time 01.30 minutes. 10:38:31 Contrast amount:Isovue 300 37ml. 10:38:35 Flurop Dose total: 78 10:38:35 Fluoroscopy dose: 78 mGy 10:38:37 TR band inflated with 10cc of air. 10:38:43 Post-procedure physical assessment completed. ASA score P 2 - A patient with mild systemic disease as per Trenton Mojica MD. 10:38:45 Post procedure rhythm: sinus rhythm 10:39:26 Estimated blood loss: 10 ml 10:39:33 Post procedure instruction explained to patient.Patient verbalizes understanding. 10:39:36 Patient needs reinforcement of post procedure teaching. 10:39:46 Procedure type changed to Cath procedure, Diagnostic procedure, Sedation Charges, Moderate Sedation up to 30 minutes, PCI procedure, Coronary Stent, Coronary Stent Initial 10:43:20 Procedure and supply charges have been captured, reviewed, submitted and are correct. 10:43:23 Procedure Complication : No complications 10:43:25 Vital chart was stopped 10:43:25 See physician's report for complete and final results. 10:43:30 Report given to Pre/Post Procedure Room. 10:43:32 Patient transfered to Pre/Post Procedure Room with Bed. 10:43:34 Procedure ended. 10:43:34 Full Disclosure recording stopped 10:43:37 End room use (Document Last) Intervention Summary Intervention Notes Time ActionType Lesion and Equipment Action# Pressure Duration Attributes Used 10:37:50 Inflate Mid RCA INTEGRITY RX 1 13 00:10 balloon 3.5 x 15 stent ([id number]) Device Usage Item Name Manufacture Quantity Catalog Hospital Part Current Minima l Lot# / Number Charge Number Stock Stock Serial# Code ACIST Acist 1 98366 211019 568240 205781 20 Anita Margarita (20355) FlixChip Bag Decanter Microtek 1 [id number] 53088 604233 5 (2002S) Medical Inc. ACIST Hand Acist 1 04045 235856 813965 664302 5 Control Medical (11182) Systems Inc ACIST Acist 1 60202 213133 858536 521087 5 Manifold Medical (61020) Systems Inc Tegaderm 4 x 3M 1 1626W 872521 672504 302567 5 4 (1626W) Medline Cath Medline 1 [id number] 534975 42912 606530 5 Pack ([id number]) DIAGNOSTIC [place] 1 814024 286995 140383 865285 30 WIRE .035 260cm J wire (641618) MBrace Wrist Advanced 1 140-0250-00 726269 63283 194849 5 Support Vascular ([id number]) Dynamics SHEATH 6FR Terumo 1 [id number] 584647 331609 858039 5 Slender (80-1060) INTEGRITY RX Medtronic 1 [id number] 361117 523534 443174 5 [id number] 3.5 x 15 stent ([id number]) TR BAND Terumo 1 [id number] 773739 539808 540513 40 Standard ([id number]) GUIDE 6FR AR Medtronic 1 [id number] 260275 37949 380223 1 2.0 catheter ([id number]) Signature Audit [place] Stage Time Signature Unsigned Intra-Procedure 10/25/2018 Thuy Dee 10:45:36 AM RT(R) Signatures Monitor : Thuy Dee Signature : RT Date : Time : [facility] [address] [facility] [place] [address]
[~2018-10-25 08:08] MED LIST: BAYER CHEWABLE81 MG PO; CALAN120 MG PO; DOXEPIN HCL10 MG PO; HYDROCODON-ACE1 EA10 PO; NAPROSYN500 MG PO; PEPCID40 MG PO; PLAVIX75 MG PO; PRAVACHOL40 MG PO; TOPROL XL50 MG PO; VALIUM5 MG PO; ZYRTEC10 MG PO
[2018-10-25 08:32] VITALS: BP 135/89; Ht 188 cm; Wt 97.7 kg
[2018-10-25 08:43] LABS: HEMATOCRIT 45.9 % (42.0-54.0); HEMOGLOBIN 16.1 g/dL (13.5-17.5); LYMPHOCYTES 13.4 % (15-50); MCHC 35.1 g/dL (31.0-37.0); MCV 94.1 fL (80.0-100.0); NEUTROPHILS 85.3 % (40-80); PLATELET COUNT 222 10x3/uL (130-400); RBC 4.88 10x6/uL (4.20-6.10); RDW 12.6 % (11.5-14.5); WBC 10.7 10x3/uL (4.8-10.8)
[2018-10-25 08:54] LABS: CALC OSMOLALITY 283 mosm/kg (275-300); CARBON DIOXIDE 21.5 mmol/L (21.0-32.0); CHLORIDE - SERUM 104 mmol/L (98-107); GLUCOSE 147 mg/dL (74-106); POTASSIUM - SERUM 4.4 mmol/L (3.5-5.1); SODIUM 140 mmol/L (136-145); UREA NITROGEN 18 mg/dL (7-18); eGFR NON AFRICAN AMERICAN 85 mL/min (90-120)
--- NOTE | 2018-10-25 10:53 | NUR ---
PT ARRIVED BY STRETCHER. PLACED ON MONITOR. FAMILY AT BEDSIDE. RIGHT RADIAL TR BAND IN PLACE. NO BLEEDING/HEMATOMA.
--- NOTE | 2018-10-25 11:09 | NUR ---
PT RESTING COMFORTABLY. CALL LIGHT WITHIN REACH. FAMILY AT BEDSIDE. RIGHT WRIST TR BAND IN PLACE. NO BLEEDING/HEMATOMA NOTED. VSS.
--- NOTE | 2018-10-25 11:40 | NUR ---
PT RESTING WITH EYES CLOSED. EASILY AROUSED FROM SLEEP. RIGHT RADIAL TR BAND IN PLACE. NO BLEEDING/HEMATOMA NOTED. VSS.
--- NOTE | 2018-10-25 12:20 | NUR ---
PT'S MORE AWAKE AND ALERT. SET UP WITH SANDWICH TRAY. VSS. RIGHT RADIAL TR BAND IN PLACE. NO BLEEDING/HEMATOMA NOTED.
--- NOTE | 2018-10-25 12:54 | NUR ---
PT FINISHED SANDWICH TRAY. DENIES NAUSEA. RIGHT RADIAL TR BAND IN PLACE. NO BLEEDING/HEMATOMA NOTED. VSS. PT'S MOTHER AT BEDSIDE.
--- NOTE | 2018-10-25 13:22 | NUR ---
2cc OF AIR REMOVED FROM TR BAND. NO BLEEDING/HEMATOMA NOTED. VSS.
--- NOTE | 2018-10-25 13:40 | NUR ---
2cc OF AIR REMOVED FROM TR BAND. NO BLEEDING/HEMATOMA NOTED. VSS. TOLERATING WELL.
--- NOTE | 2018-10-25 14:07 | NUR ---
4cc OF AIR REMOVED FROM TR BAND. NO BLEEDING/HEMATOMA NOTED. LEFT HAND PIV D/C'D WITH CATH TIP INTACT. PT TOLERATED WELL.
--- NOTE | 2018-10-25 14:25 | NUR ---
PT DRESSED AND UP TO SIDE OF BED. DISCUSSED DISCHARGE INSTRUCTIONS WITH PT AND PT'S MOTHER. THEY VOICED UNDERSTANDING. RIGHT RADIAL TR BAND REMOVED AND DRESSING APPLIED. NO BLEEDING/HEMATOMA NOTED. RIGHT RADIAL ARM BRACE IN PLACE. PT INSTRUCTED TO KEEP ON FOR 2 HOURS AND THEN CAN REMOVE.
--- NOTE | 2018-10-25 14:40 | NUR ---
PT TAKEN OUT TO VEHICLE BY WHEELCHAIR. NO S/S OF DISTRESS NOTED. RIGHT RADIAL DRESSING C/D/I. NO S/S OF HEMATOMA. ALL BELONGINGS IN HAND.
--- NOTE | 2018-10-25 15:03 | OP ---
PATIENT NAME: KADIE DELEON MEDICAL RECORD: [id number] :74 LOCATION:D.CAT ADMISSION DATE: SURGEON: DOUG GIANG MD DATE OF OPERATION: 10/25/2018 PROCEDURES: 1. PTCA stent RCA. 2. Selective coronary angiography. INDICATION: Angina and coronary artery disease. PROCEDURE IN DETAIL: After informed consent was obtained, and after a detailed description of risks, benefits as well as alternative therapies, the patient elected to proceed with angiogram and angioplasty. The right radial area was prepped and draped in normal sterile fashion. Right radial artery was cannulated via modified Seldinger technique with placement of 6-Belarusian sheath. All catheters exchanged through this sheath. FINDINGS: The right coronary artery has 75% stenosis in the mid vessel. This was addressed with a 3.5 x 15 mm Integrity stent. Result was 0% residual stenosis. OVERALL IMPRESSION: Successful percutaneous transluminal coronary angioplasty stent of the right coronary artery. TRANSINT:[id number] Voice Confirmation ID: [id number] DOCUMENT ID: [id number] DOUG GIANG MD at 1503 CC: [id number] DICTATION DATE: 10/25/18 1042 [employer]ICE PRESIDENT [employer]: 10/25/18 1201 DEP CLI 10/25/18 [id number] [place] [address]
--- NOTE | 2018-10-25 15:03 | HP ---
PATIENT: KADIE DELEON MEDICAL RECORD: [id number] ACCOUNT: [id number] LOCATION:JIM : 74 ADMISSION DATE: 10/25/18 PCP: Undefined Provider HISTORY AND PHYSICAL EXAMINATION DIAGNOSES: 1. Angina. 2. Coronary artery disease. 3. Recent non-Q-wave myocardial infarction with PTCA stent of the LAD and diagonal with concomitant disease of the right RCA. 4. Hypertension. 5. Hyperlipidemia. HISTORY OF PRESENT ILLNESS: Mr. Deleon presents with a non-Q-wave myocardial infarction, found to have disease of the LAD, diagonal and RCA, underwent successful PTCA stent of the LAD and diagonal, now brought back for PTCA stent of the RCA. PHYSICAL EXAMINATION: GENERAL APPEARANCE: Well-nourished, well-developed, appears stated age. Level of distress, comfortable. PSYCHIATRIC: Mental status, alert, normal affect. Orientation, oriented to time, place and person. EYES: Lids and conjunctiva, noninjected. No discharge, no pallor. ENT: Lips, teeth, gums, normal dentition. Oropharynx, no cyanosis, no pallor. NECK: Carotid arteries, bilateral normal upstroke, no bruits, no thrills. JUGULAR VEINS: No jugular venous pressure or distention. CERVICAL LYMPH NODES: Nontender, nonenlarged. THYROID: Not enlarged. Nontender. No nodules. LUNGS: Respiratory effort, unlabored. CHEST: Normal curvature. No thoracic deformity. No chest wall tenderness. Percussion, resonant. Auscultation, clear. No wheezes, no rales, no rhonchi. CARDIOVASCULAR: Precordial exam, nondisplaced. No heaves or pericardial thrills. Rate and rhythm, regular. Heart sounds, normal S1, normal S2. No S3, no gallop, no rub. Systolic murmur, not heard. Diastolic murmur, not heard. EXTREMITIES: No cyanosis, no edema. Peripheral pulses, full and equal in all extremities, except as noted. No bruits appreciated. ABDOMEN: Soft, nondistended. Normal aorta. No bruit. Nontender. No masses. Liver, nontender, no hepatomegaly. Spleen, nontender, no splenomegaly. MUSCULOSKELETAL: No joint tenderness. No joint swelling. No erythema. NEUROLOGICAL: Normal gait, normal strength, normal tone. SKIN: Warm and dry. OVERALL IMPRESSION: Anginal symptomatology with significant disease of the RCA. We will proceed with transcatheter revascularization of the RCA. 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
== END 2018-10-25 14:40 | disposition home or self-care (01) ==
LOC: D.CATH 08:08
PROVIDERS: ATTEND Internal Medicine Interventional Cardiology
DX: I25.119 Atherosclerotic heart disease of native coronary artery with unspecified angina pectoris (principal); Z01.812 Encounter for preprocedural laboratory examination